=== PATIENT | male | born 1940 | race Caucasian/White ===

== ENCOUNTER → 2016-07-19 | Outpatient (CLI) | payer MEDICARE, OTHER ==
[~2016-07-19] MED LIST: FOSI10TA3 PO; HYDR30CR57 TOP; LEVO150T11 PO; SIMV20TA2 PO; WARF10TA4 PO; WARF6TAB20 PO
--- NOTE | 2016-07-19 14:32 | DI ---
Indication: ITS.REASON: R07.9 CHEST PAIN; J30.9 Allergic rhinitis CHEST, PA LATERAL: Comparison: 07/19/2016 Technique: PA and lateral chest Findings: Patient showed normal heart and mediastinum. Central vascular is unremarkable. Just slight interstitial prominence present in the lung bases. No acute additional findings. No acute bony findings are seen. Impression: No active cardiopulmonary findings. .
--- NOTE | 2016-07-19 14:32 | DI ---
Indication: ITS.REASON: R07.9 CHEST PAIN; J30.9 Allergic rhinitis CHEST DECUBITUS 1-2 VIEWS: Comparison: Chest film earlier in the day Technique: Left lateral decubitus view Findings: Patient showed no significant fluid on either side of the chest. Impression: No significant layering of fluid identified. Similar findings to the previous chest radiograph noted. .
== END ==
LOC: IMA 11:27
PROVIDERS: ATTEND Internal Medicine
DX: J30.9 Allergic rhinitis, unspecified (principal); R07.9 Chest pain, unspecified